=== PATIENT | female | born 2005 | race Caucasian/White ===

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

== ENCOUNTER 2025-01-24 09:12 | Outpatient (AMB) | payer OTHER, SELFPAY ==
--- NOTE | 2025-01-24 09:13 | A.OFFPC_ITS ---
Intake Visit Reasons: f/u weight loss telehealth Information Technology Program Manager Required: No Financial Reporting Specialist: Not Required per policy Accompanied by: Self / Same As Patient Allergies No Known Allergies Allergy (Verified 01/24/25 09:24) Medication List - Last Reconciled 01/24/25 by Kiya Saini PA-C cholecalciferol (vitamin D3) 25 mcg PO DAILY phentermine 15 mg PO DAILY Tobacco use date assessed: 11/23/24 Dental Screening Dental Screen Date: 11/23/24 HPI f/u weight loss telehealth HPI Details 19 year female with past medical history of depression last seen 10/2024 presenting via telehealth for follow up on weight loss. Experienced a single episode of high anxiety and agitation one to two weeks ago, linked to exam stress possibly exacerbated by phentermine use. Resolved after discussion with her sister, with no recurrence. Current weight is 258 pounds, with recent fluctuations due to menstrual cycle and stress. Lost 7 to 10 pounds over the last few months despite stress and routine changes. Adjusting to new eating habits on campus and occasional self-cooking. Exercises by attending the gym twice weekly and walking regularly. Depression is Well managed with outlets like [email or web address] for stress and anxiety management. [facility] Medical History Enlarged adenoids Surgical History H/O adenoidectomy History of partial surgical removal of vital pulp of tooth History of turbinectomy Family History Mother No problems noted. Father No problems noted. Sister No problems noted. Brother No problems noted. Social History Household Members: Family Both parents involved: Yes Housing: House Alcohol intake: never Patient Tobacco Use Status: Never used Tobacco e-Cigarette/Vaping Use: Never Used Second Hand Smoke Exposure: No service: No Current occupational status: student Cognitive needs: No Hearing needs: No Vision needs: Yes Questionnaire Thrive Questionnaire Date Thrive assessed: 09/28/24 I am a: Patient What is your living situation today?: I have a steady place to live Within the past 12 months, did the food you bought not last and you didn't have the money to get more?: Never true Within the past 12 months, did you worry whether your food would run out before you got money to buy more?: Never true Do you have trouble paying for medicines?: No Do you have trouble getting transportation to medical appointments?: No Do you have trouble paying your heating and electricity bill?: No Do you have trouble taking care of your child, family member or friend?: No Do you have trouble with day-to-day activities such as bathing, preparing meals, shopping, managing finances, etc.?: No Are you currently unemployed and looking for a job?: No Are you interested in more education?: Yes Please select the resources that you would like help with: None Currently or been in a relationship where the following occur: No concerns reported THRIVE Score: 0 NEEMA-7 AMB Questionnaire NEEMA-7 Date NEEMA - 7 assessed: 11/23/24 Source: Developed by Drs. Reggie Tucker, Tiffany Mcnally, Mark Thompson and colleagues, with an educational paulina from [employer]. Review of Systems Const Denies body aches, Denies chills, Denies fever(s), Denies headache(s) and Denies poor appetite Eyes Reports no additional complaints ENT Denies dysphagia, Denies dizziness, Denies headache(s) and Denies odynophagia Card Denies chest pain, Denies lightheadedness and Denies dyspnea Resp Denies dyspnea GI Denies dysphagia, Denies nausea, Denies odynophagia and Denies vomiting Reports no additional complaints Musc Reports no additional complaints and Denies abnormal gait Skin/Breast Reports system reviewed and no additional complaints, except as documented Neuro Denies abnormal gait, Denies dizziness and Denies headache(s) Psych Reports no additional complaints Physical exam (Primary Care) Vital Signs: Vital signs and physical exam not performed due to nature of telehealth visit Tobacco/Smoking Status: Tobacco use Status Tobacco use date assessed 11/23/24 01/24/25 09:14 Patient Tobacco Use Status Never used Tobacco 01/24/25 09:14 Tobacco use type 11/23/24 16:24 e-Cigarette/Vaping Use Never Used 01/24/25 09:14 Thrive Assessment: Date of Thrive Assessment Date Thrive assessed 09/28/24 01/24/25 09:14 Currently or been in a relationship where the following occur: No concerns reported Telehealth Telehealth Telehealth Platform: [place] Location of provider rendering services: practice address Location of patient: address on file Patient Identification confirmed using: Name, : Yes Telehealth method: video Patient verbally consented to treatment: Yes Patient verbally consented to billing insurance company: Yes Patient informed of any privacy concerns related to visit: Yes Coding Level of Care Code Tele Est Pt Level 3 (02313) Diagnoses Depression F32.A Morbid obesity with body mass index (BMI) of 45.0 to 49.9 in adult E66.01; Z68.42 Assessment & Plan Assessment & Plan (1) Depression: Code(s): F32.A - Depression, unspecified Category: Medical Plan: The patient's depression is reported as well managed, with no current concerns. She uses crocheting as an outlet for managing stress and anxiety. The patient experienced a single episode of high anxiety and agitation, likely exacerbated by exam stress and phentermine use. The episode resolved after disc ussion with her sister, and no recurrence has been reported. The plan includes monitoring for any further episodes and utilizing stress management techniques such as crocheting. (2) Morbid obesity with body mass index (BMI) of 45.0 to 49.9 in adult: Code(s): E66.01 - Morbid (severe) obesity due to excess calories; Z68.42 - Body mass index [BMI] 45.0-49.9, adult Category: Medical Plan: The patient has experienced weight fluctuations, currently weighing 258 pounds, with a recent loss of 7 to 10 pounds over the last few months. The plan includes continuing with regular exercise, attending the gym twice weekly, and maintaining dietary adjustments while adjusting to college life. She continues to benefit from phentermine and she will continue on this medication at this time. Plan This note was constructed using voice recognition software. While every effort has been made to ensure accuracy and dry kiln feeder, still areas may have been included sometimes these areas may affect the content or meeting of the given symptoms. Total time spent caring for the patient today was 15 minutes. This includes time spent before the visit reviewing the chart, time spent during the visit, and time spent after the visit and documentation. Patient was informed and verbally consented to the use of an ambient scribe for clinic note documentation during this visit. Medications: Changed From phentermine must administer 2 hours after breakfast - fill on 09/28/2024 15 mg PO DAILY 30 caps 0RF To phentermine must administer 2 hours after breakfast - 15 mg PO DAILY 30 caps 0RF
--- OUTSIDE RECORDS SUMMARY | 2025-01-24 09:57 | XMS_ITS | Clinical Summary ---
Author Organization [facility] Address [address] [place] [address] Care Team Providers Care Sourcing Consultant Name Role Phone SilvinoEmmett chen SALON LEADER-C Primary Care Provider [phone] Source Comments PLEASE NOTE, if this patient [...] Flu, Preservative Free 01/28/2023 HEP B, PED/ADOL (WWMNILN-C-OFPE/RECOMBIVAX-PEDS) 2005,2005,2005,09/03,2005,2005,2005 ,2005 HPV 9 (Gardasil) 02/19/2021,02/24/2018 Hep A, Ped/adol, 2 Dose 12/28/2008,12/28,03/05/2006,03/05 Hib (PRP-T) 2005, 6,2005,09/03,2005,2005 INFLUENZA, SEASONAL, INJECTA BLE, PRESERVATIVE FREE 01/26/2014 IPV (IPOL) 01/17/2011, 1,2005,10/29,2005,2005,2005 ,2005 MENINGOCOCCAL MCV4P (MENACTRA) 02/19/2021,2017 MMR (MMR II/Priorix) 01/17/2011,01/18/20 11,03/05/2006,03/05 PFIZER COVID VACCINE, PURPLE CAP, 12+ 10/06/2020 ,09/15/2020 PNEUMOCOCCAL CONJUGATE PCV 7 2005, 2005,2005,07/17 PPD 08/13/2022 Pfizer-[employer] COVID-19 Vac cine Bivalent, (TREVIZO PFIZER-BIONTECH COVID-19 [...] Mass Index 39.96 01/28/2023 2:57 PM EDT Plan of Treatment Health Maintenance Due Date Last Done Comments Anxiety Screening 11/29/2022 11/29/2021 Annual Wellness (Adult): Indicated (All Coverage) 01/29/2024 01/28/2023 Relationship Safety Screening/Counseling 01/29/2024 01/28/2023, 11/29/2021, 10/16/2020 Depression Annual Screen 04/27/2024 01/28/2023 [id number] ( season) 2024 08/15/2022, 10/06/2020, 09/15/2020 Imm-Influenza (#1) 2024 01/28/2023, 01/26/2014 Hypertension Screening [...] Procedure Name Priority Date/Time Associated Diagnosis Comments REFERRAL SCANNED DOCUMENT 11/23/2024 3:00 AM EDT HEPATITIS C AB W/RFLX HCV RNA, QT, [...] Recently Relevant to Health Maintenance Results * REFERRAL SCANNED DOCUMENT (11/23/2024 3:00 AM EDT) 11/23/2024 3:00 AM EDT Allison Leigh MD SCAN REFERRAL Final Result * Hep C w/ Reflex (01/28/2023 3:47 PM EDT) HEPATITIS C ANTIBODY NON-REACT ALEJANDRINA NON-REACT ALEJANDRINA [employer] [facility] Comment: HCV antibody was non-reactive. There is no laboratory evidence of HCV infection. In most cases, no further action is required. However, if recent HCV exposure is suspected, a test for HCV RNA (test code 36127) is suggested. For additional information please refer to http://MoveEZ.Likez/faq/PAG28v5 (This link is being provided for informational/ educational purposes only.) Blood Blood / Unknown 01/28/2023 3 :47 PM EDT 01/28/2023 3:48 PM EDT Jacki Loaiza NP LAB - BLOOD DRAW Final Result Performing Organization Address [facility] Co de Phone Number [employer] [address] [address], [employer] [address] [address] * CHLAMYDIA/GONORRHOEAE RNA, TMA, URINE (11/29/2021 9:28 AM EDT) CHLAMYDIA TRACHOMATIS RNA, TMA NOT DETECTED NOT DETECTED [employer] [facility] NEISSERIA GONORRHOEAE RNA, TMA NOT DETECTED NOT DETECTED [employer] [facility] COMMENT [employer] [facility] Urine Urine specimen / Unknown 11/29/2021 9:28 AM EDT 11/29/2021 9:29 AM EDT Narrative [facility] - 11/30/2021 8:14 AM EDT FASTING:NO The analytical performance characteristics of this assay, when used to test SurePath(TM) specimens have been determined by [employer]. The modifications have not been cleared or approved by the FDA. This assay has been validated pursuant to the CLIA regulations and is used for clinical purposes. For additional information, please refer to https://MoveEZ.Likez/faq/BHH634 (This link is being provided for information/ educational purposes only.) Allison Leigh MD LAB BODY FLUIDS AND STOOLS A MBULATORY Final Result Performing Organization Address [facility] Co de Phone Number [employer] [facility] [address] [address], [employer] [address] [address] * HIV 1/2 AG & AB W/RFLX (4TH GEN) (10/16/2020 9:39 AM EDT) HIV AG/AB, 4TH GEN NON-REAC TIVE NON-REAC TIVE [employer] [facility] Comment: HIV-1 antigen and HIV-1/HIV-2 antibodies [...] purpose. For additional information please refer to http://education.Likez/faq/XAB169 (This link is being provided for informational/ educational purposes only.) The performance of this assay has not been clinically validated in patients less than 2 years old. Blood Blood / Unknown 10/16/2020 9 :39 AM EDT 10/16/2020 9:41 AM EDT Allison Leigh MD LAB - BLOOD DRAW Edited Resu lt - Final [employer] [facility] [address] [address], [employer] [facility] [address] [address] from Last 3 Months or Most Recently Relevant to Health Maintenance Insurance [facility] Care Teams Sourcing Consultant Relationship Specialty Start Date End Date Emmett Dubois FNP-C [address] [place] [address] PCP - General Internal Medicine 04/17/23
== END 2025-01-24 09:32 | disposition home or self-care (01) ==
LOC: HO.HMCH 09:12
DX: F32.A Depression, unspecified (principal); E66.01 Morbid (severe) obesity due to excess calories; Z68.42 Body mass index [BMI] 45.0-49.9, adult

== ENCOUNTER 2025-04-25 10:02 | Outpatient (AMB) | payer OTHER, SELFPAY ==
--- NOTE | 2025-04-25 10:05 | A.OFFPC_ITS ---
Vital Signs 04/25/25 10:06 04/25/25 10:36 Height 5 ft 6 in Weight 266 lb 8 oz BMI 43.0 BP 116/76 Blood Pressure Location Lt brachial Position Sitting Respiration 18 Pulse 111 H 80 Pulse Source Pulse Oximeter Auscultation Temp 98.1 F Temp Source Temporal Artery Scan Pulse Oximetry (%) 98 Oxygen Delivery Method Room Air Intake Visit Reasons: f/u weight loss Healthcare Administrative Assistant Required: No Accompanied by: Self / Same As Patient Allergies No Known Allergies Allergy (Verified 04/25/25 10:15) Medication List - Last Reconciled 04/25/25 by Kiya Saini PA-C cholecalciferol (vitamin D3) 25 mcg PO DAILY phentermine 15 mg PO DAILY Tobacco use date assessed: 11/23/24 Dental Screening Dental Screen Date: 11/23/24 HPI f/u weight loss HPI Details 20 year female with past medical history of depression last seen 12/2024 coming in for follow up on weight loss. In review of the notes, phentermine was discontinued due to potential side effects. Presenting for a follow-up on anxiety and weight management. Her primary concern is anxiety, which she experiences daily with symptoms of chest tightness, palpitations, and a pounding heart. 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 After these frequent episodes, she reports feeling drained and sometimes depressed. The patient has no prior history of taking medication for anxiety and has a history of negative EKGs. The anxiety and heart racing resolves with deep breathing and removing herself from the stressful situation. Regarding weight management, she reports being on phentermine previously, but it was stopped by another provider during a hospitalization. She expresses frustration over her lack of weight loss, which she attributes to focusing on her studies and managing anxiety. For her diet and lifestyle, the patient reports walking everywhere for physical activity. She tries to eat three meals a day but has been skipping meals and going to bed hungry due to her late-night study schedule and lack of readily available food in her apartment. [facility] Medical History Enlarged adenoids Surgical History H/O adenoidectomy History of partial surgical removal of vital pulp of tooth History of turbinectomy Family History Mother No problems noted. Father No problems noted. Sister No problems noted. Brother No problems noted. Social History Household Members: Family Both parents involved: Yes Housing: House Alcohol intake: never Patient Tobacco Use Status: Never used Tobacco e-Cigarette/Vaping Use: Never Used Second Hand Smoke Exposure: No service: No Current occupational status: student Cognitive needs: No Hearing needs: No Vision needs: Yes Questionnaire Thrive Questionnaire Date Thrive assessed: 09/28/24 I am a: Patient What is your living situation today?: I have a steady place to live Within the past 12 months, did the food you bought not last and you didn't have the money to get more?: Never true Within the past 12 months, did you worry whether your food would run out before you got money to buy more?: Never true Do you have trouble paying for medicines?: No Do you have trouble getting transportation to medical appointments?: No Do you have trouble paying your heating and electricity bill?: No Do you have trouble taking care of your child, family member or friend?: No Do you have trouble with day-to-day activities such as bathing, preparing meals, shopping, managing finances, etc.?: No Are you currently unemployed and looking for a job?: No Are you interested in more education?: Yes Currently or been in a relationship where the following occur: No concerns reported THRIVE Score: 0 NEEMA-7 AMB Questionnaire NEEMA-7 Date NEEMA - 7 assessed: 11/23/24 Source: Developed by Drs. Reggie Tucker, Tiffany Mcnally, Mark Thompson and colleagues, with an educational paulina from [employer]. Review of Systems Const Denies body aches, Denies chills, Denies fever(s), Denies headache(s) and Denies poor appetite Eyes Reports no additional complaints ENT Denies dizziness and Denies headache(s) Card Denies chest pain, Denies syncope, Denies edema, Denies irregular heart rhythm, Denies lightheadedness, Reports palpitations and Denies dyspnea Resp Denies cough and Denies dyspnea GI Denies nausea and Denies vomiting Reports no additional complaints Musc Reports no additional complaints and Denies abnormal gait Skin/Breast Reports system reviewed and no additional complaints, except as documented Neuro Denies abnormal gait, Denies dizziness, Denies syncope and Denies headache(s) Psych Reports no additional complaints Endo Reports palpitations Physical exam (Primary Care) Vital Signs: Last Vital Signs Temp 98.1 F 04/25/25 10:06 Pulse 80 04/25/25 10:36 Resp 18 04/25/25 10:06 BP 116/76 04/25/25 10:06 Pulse Ox 98 04/25/25 10:06 Oxygen Delivery Method Room Air 04/25/25 10:06 BMI result Body Mass Index 43.0 Tobacco/Smoking Status: Tobacco use Status Tobacco use date assessed 11/23/24 04/25/25 10:11 Patient Tobacco Use Status Never used Tobacco 04/25/25 10:11 Tobacco use type 11/23/24 16:24 e-Cigarette/Vaping Use Never Used 04/25/25 10:11 Thrive Assessment: Date of Thrive Assessment Date Thrive assessed 09/28/24 04/25/25 10:11 Currently or been in a relationship where the following occur: No concerns reported Const General: cooperative, healthy appearing, comfortable and no acute distress Orientation/consciousness: patient oriented x3 HENMT Head: Yes normocephalic Ears: hearing grossly normal bilaterally General nose exam: Normal external nose present Eyes General: appearance normal, both eyes and all related structures Conjunctivae: conjunctivae normal Neck Neck: Yes full ROM and Yes no lymphadenopathy Resp Effort & Inspection: normal respiratory effort Auscultation: clear to auscultation bilaterally, no crackles, no rales, no rhonchi and no wheezes Cardio Rate: regular rate Rhythm: regular rhythm Skin General skin exam: no rashes or lesions noted Neuro General: patient oriented x3 Gait exam (Neuro): Normal gait present Extrem General: Yes normal to inspection, Yes full ROM and No edema Psych Affect: normal affect Attitude: cooperative Insight: Good insight present (Psych) Judgement: Good judgement present (Psych) Coding Level of Care Code Est Pt Level 3 (58037) Diagnoses Morbid obesity with BMI of 45.0-49.9, adult E66.01; Z68.42 Anxiety F41.9 Racing heart beat R00.0 Assessment & Plan Assessment & Plan (1) Morbid obesity with BMI of 45.0-49.9, adult: Code(s): E66.01 - Morbid (severe) obesity due to excess calories; Z68.42 - Body mass index [BMI] 45.0-49.9, adult Category: Medical Plan: The patient is engaged in weight management but has found it challenging due to academic and emotional stress. Phentermine treatment will remain on hold due to her ongoing symptoms of palpitations and heart racing. Restarting phentermine or considering other options, such as injections, may be discussed in the future if her cardiovascular symptoms resolve. The patient was encouraged to maintain healthy eating habits and keep accessible, protein-rich snacks available to prevent skipping meals. (2) Anxiety: Code(s): F41.9 - Anxiety disorder, unspecified Category: Medical Plan: The patient's daily symptoms of palpitations, chest tightness, and a racing heart are consistent with an anxiety disorder, likely exacerbated by academic stress. Given the daily frequency of symptoms, a once-daily medication is more appropriate than an as-needed one. The plan is to initiate Lexapro (escitalopram) to be taken once daily. Potential side effects, including weight gain and sexual dysfunction, were discussed, as was the typical 4-6 week onset of therapeutic effect. The patient also plans to begin counseling with an art therapist. Follow-up will occur in two months to assess response to treatment. (3) Racing heart beat: Code(s): R00.0 - Tachycardia, unspecified Category: Medical Plan: See above plan. I did also offer for Holter monitor which was declined at this time. Patient has had negative EKGs in the past. Given the history it may be related to anxiety as it resolved with the breathing however patient was given strict return protocol as and when to present for re-evaluation. Plan This note was constructed using voice recognition software. While every effort has been made to ensure accuracy and director of communications, still areas may have been included sometimes these areas may affect the content or meeting of the given symptoms. Total time spent caring for the patient today was 20 minutes. This includes time spent before the visit reviewing the chart, time spent during the visit, and time spent after the visit and documentation. Patient was informed and verbally consented to the use of an ambient scribe for clinic note documentation during this visit. Medications: New escitalopram oxalate 5 mg PO DAILY 90 tabs 0RF escitalopram oxalate 5 mg PO DAILY 90 tabs 0RF On Hold phentermine Hold Comment: Doctor's Order 15 mg PO DAILY 30 caps 0RF
[2025-04-25 10:06] VITALS: BP 116/76; PULSE 111; RESP 18; TEMP 36.7; O2SAT 98; BMI 43.0
[2025-04-25 10:36] VITALS: PULSE 80
--- OUTSIDE RECORDS SUMMARY | 2025-04-25 13:10 | XMS_ITS | Clinical Summary ---
Author Organization [facility] Address [address] [place] [address] [place] [id number] Phone Care Team Providers Care Power System Dispatcher Name Role Phone Pcp, Not Required Primary Care Provider Unavaila ble Allergies No known active allergies Medications No known medications Encounters Date Type Department Care Team Description 02/02/2025 4:02 AM EDT - 02/02/2025 6:15 AM EDT Emergency [facility] Emergency Department [address] [place] [address] Niall Pina MD, MYRON Discharge Disposition: Home or Self Care 02/02/2025 Telephone [facility] Emergency Department [address] [place] [address] Niall Pina MD, MYRON Follow-up (CXR discussion) from Last 3 Months Social History Tobacco Use Types Packs/Day Years Used Date Smoking Tobacco: Never Assessed Education Answer Date Recorded Are you interested in more education? Not on dana e 03/10/2025 Are you concerned about learning? Not on file 03/10/2025 No 03/10/2025 No 03/10/2025 Food Answer Date Recorded Within the past 6 months we worried whether our food would run out before we got money to buy more. Unable to assess 025 Within the past 6 months the food we bought just didn't last and we didn't have enough money to get more. Unable to assess 02/02/2025 Residential Stability Answer Date Recor ded What is your housing situation today? Unable to assess 02/02/2025 How many times have you moved in the past 12 thu ths? Unable to assess 02/02/2025 Paying for Meds Answer Date Recorded Do you have trouble paying for medicines? Unable to assess 02/02/2025 Paying Utility Bills Answer Date Record ed Do you have trouble paying y our heating or electricity bill? Unable to assess 02/02/2025 Transportation Answer Date Recorded Has the lack of transportati on kept you from medical appointments or from getting medications? Unable to assess 02/02/2025 Digital Access Answer Date Recorded No 02/02/2025 No 02/02/2025 Do you have reliable internet access at home? Un able to assess 02/02/2025 Do you have a device (e.g., phone, tablet, computer) with a working camera? Unable to assess 02/02/2025 Intimate Partner Violence Answer Date R ecorded Are you denied basic needs s uch as food, clothing, or medical care? No 02/01/2025 In the past 12 months have y ou been in a relationship with a person who hurts, threatens, or tries to control you? No 02/01/2025 Are you denied basic needs s uch as food, clothing, or medical care? No 02/01/2025 In the past 12 months have y ou been in a relationship with a person who hurts, threatens, or tries to control you? No 02/01/2025 Comments Unknown Sex and Gender Information Value Date Recorded Sex Assigned at Female 03/10/2025 1:12 PM EST Legal Sex Female 7:04 PM EST Gender Identity Female 03/10/2025 1:12 PM EST Sexual Orientation Straight 03/10/2025 1: 12 PM EST Last Filed Vital Signs Vital Sign Reading Time Taken Comments Blood Pressure 127/81 02/02/2025 1:11 AM EDT Pulse 117 02/01/2025 8:46 PM EDT Temperature 36.1 C (97 F) 02/02/2025 1:11 AM EDT Respiratory Rate 20 02/02/2025 1:11 AM EDT Oxygen Saturation 99% 02/02/2025 1:11 AM EDT Inhaled Oxygen Concentration - - Weight - - Height - - Body Mass Index - - Plan of Treatment Not on file Medical Devices Not on file Procedures Procedure Name Priority Date/Time Associated Diagnosis Comments XR CHEST PORTABLE Routine 02/02/2025 4:4 8 AM EDT D-DIMER STAT 02/02/2025 4:41 AM EDT TROPONIN STAT 02/01/2025 9:30 PM EDT BASIC METABOLIC PANEL (BMP) STAT 02/01/2025 9:30 PM EDT HC BLOOD COUNT COMPLETE AUTO&AUTO DIFRNTL WBC STAT 02/01/2025 9:30 PM EDT ECG 12-LEAD STAT 02/01/2025 8:59 PM EDT from Last 3 Months Results * XR Chest Portable (02/02/2025 4:48 AM EDT) Anatomical Region Laterality Modality Chest Radiographic Renata ging 02/02/2025 6:52 AM EDT Impressions 02/02/2025 6:52 AM EDT Mild right middle lobe consolidation, atelectasis versus early pneumonia. Narrative 02/02/2025 6:52 AM EDT XR CHEST PORTABLE Referring clinician's provided indication for this examination in [facility]: Pain; Dyspnea (Shortness of Breath) COMPARISON: None FINDINGS: Devices/Tubes/Lines: None. Lungs: Mild right hilar and right middle lobe peribronchial densities and streaky opacification in the right middle lobe. Atelectasis versus early pneumonia. No other air space consolidation. Pleura: No pleural effusion or pneumothorax. Heart/Mediastinum: Mild cardiac silhouette enlargement. Bones/Soft Tissues: No significant abnormality. Procedure Note Ginette Burns MD, PhD - 02/02/2025 XR CHEST PORTABLE Referring clinician's provided indication for this examination in [facility]:Pain; Dyspnea (Shortness of Breath) COMPARISON: None FINDINGS: Devices/Tubes/Lines: None. Lungs: Mild right hilar and right middle lobe peribronchial densities andstreaky opacification in the right middle lobe. Atelectasis versus earlypneumonia. No other air space consolidation. Pleura: No pleural effusion or pneumothorax. Heart/Mediastinum: Mild cardiac silhouette enlargement. Bones/Soft Tissues: No significant abnormality. IMPRESSION: Mild right middle lobe consolidation, atelectasis versus earlypneumonia. us Niall Pina MD, MYRON IMG XR CHEST Final Res ult * D-dimer (02/02/2025 4:41 AM EDT) D-DIMER 416 <500 ng/mL FEU [facility] Comment:A normal D-dimer res ult of <500 ng/mL fibrinogen equivalent units (FEU) with this assay has a negative predictive value of approximately 100% (range 97%- 100%) and is FDA approved for the exclusion of acute pulmonary embolism (PE) and deep vein thrombosis (DVT) when there is low or moderate pretest probability for PE or DVT. Blood 02/02/2025 4:41 AM EDT 02/02/2025 4:48 AM EDT Niall Pina MD, MYRON LAB BLOOD BKR ORDERABLES [place] [address], [facility] [phone] * (ABNORMAL) CBC and differential (02/01/2025 9:30 PM EDT) WBC 13.63(H) 4.00 - 11.00 K/uL [facility] RBC 4.42 4.00 - 5.20 M/uL [facility] HGB 12.2 12.0 - 16.0 g/dL [facility] HCT 37.9 36.0 - 46.0 % [facility] PLT 359 150 - 450 K/uL [facility] MCV 85.7 80.0 - 100.0 fL [facility] MCH 27.6 27.0 - 31.0 pg [facility] MCHC 32.2 32.0 - 36.0 g/dL [facility] RDW 13.6 11.5 - 14.5 % [facility] MPV 10.7 8.4 - 12.0 fL [facility] NRBC 0.00 0.00 /100 WBCs [facility] ABSOLUTE NRBC 0.00 0.00 K/uL [facility] DIFF METHOD Auto [facility] NEUTS 63.8 48.0 - 76.0 % [facility] LYMPHS 29.8 18.0 - 41.0 % [facility] MONOS 4.7 4.0 - 11.0 % [facility] EOS 1.0 0.0 - 5.0 % [facility] BASOS 0.5 0.0 - 1.5 % [facility] Granulocytes, immature (%) 0.2 0.0 - 0.9 % [facility] ABSOLUTE NEUTS 8.69(H) 1.92 - 7.60 K/uL [facility] ABSOLUTE LYMPHS 4.06 0.72 - 4.10 K/uL [facility] ABSOLUTE MONOS 0.64 0.16 - 1.10 K/uL [facility] ABSOLUTE EOS 0.14 0.00 - 0.50 K/uL [facility] ABSOLUTE BASOS 0.07 0.00 - 0.15 K/uL [facility] ABS IMMATURE GRANS 0.03 0.00 - 0.09 K/uL [facility] Blood 02/01/2025 9:30 PM EDT 02/01/2025 9:47 PM EDT us Protocol [facility] LAB BLOOD BKR ORDERABL ES Final Result [facility] [address] [place] [address], [facility] [phone] * Troponin (02/01/2025 9:30 PM EDT) Troponin-T, HS Gen5 <6 0 - 9 ng/L [facility] Blood 02/01/2025 9:30 PM EDT 02/01/2025 9:47 PM EDT us Protocol [facility] Emergency LAB BLOOD BKR ORDERABL ES Final Result Performing Organization Address [facility] de Phone Number [address] [phone] * (ABNORMAL) Basic metabolic panel (02/01/2025 9:30 PM EDT) SODIUM 139 136 - 145 mmol/L [facility] CHLORIDE 102 98 - 107 mmol/L [facility] POTASSIUM 3.7 3.6 - 5.1 mmol/L [facility] CO2 25 22 - 32 mmol/L [facility] BUN 7 6 - 20 mg/dL [facility] CREATININE 0.77 0.4 - 1.0 mg/dL [facility] GLUCOSE 128(H) 65 - 99 mg/dL [facility] CALCIUM 9.6 8.9 - 10.3 mg/dL [facility] EGFR 113 60 - 128 mL/min/1.7 3m2 [facility] Comment:Estimated glomerular filtration rate calculated using the CKD-EPI refit equation. ANION GAP 12 3 - 17 mmol/L [facility] Blood 02/01/2025 9:30 PM EDT 02/01/2025 9:47 PM EDT us Protocol [facility] Emergency LAB BLOOD BKR ORDERABL ES Final Result Performing Organization Address [facility] Co de Phone Number [place] [id number], [facility] [phone] * ECG 12-LEAD (02/01/2025 8:59 PM EDT) Ventricular Rate EKG/MIN 105 BPM [facility] Atrial Rate 105 BPM [facility] [place] Interval 136 ms [facility] QRS Duration 96 ms [facility] QT Interval 328 ms [facility] QTC Interval 433 ms [facility] P [place] 56 degrees [facility] R Wave [place] 52 degrees [facility] T Wave [place] 53 degrees [facility] 02/01/2025 8:59 PM EDT 02/03/2025 12:13 AM EDT Narrative [facility] - 02/03/2025 12:13 AM EDT Sinus tachycardia Otherwise normal ECG No previous ECGs available us Protocol [facility] ECG ORDERABLES Final Result [facility] from Last 3 Months Insurance [employer] B[employer] [facility] [place] [address] Care Teams Power System Dispatcher Relationship Specialty Start Date End Date Pcp, Not Required PCP - General 02/01/25 Additional Source Comments The information contained in this document represents components of the legal health record. It is not the complete legal health record.[facility]
== END 2025-04-25 10:55 | disposition home or self-care (01) ==
LOC: HO.HMCH 10:03
PROVIDERS: PCP Pediatrics
DX: E66.01 Morbid (severe) obesity due to excess calories (principal); Z68.42 Body mass index [BMI] 45.0-49.9, adult; F41.9 Anxiety disorder, unspecified; R00.0 Tachycardia, unspecified